=== PATIENT | male | born 1955 | race Caucasian/White ===

== ENCOUNTER 2021-01-17 15:35 | Inpatient (IN) | payer MEDICARE ==
[2021-01-17] MEDS ORDERED: Furosemide 40 MG/4 ML VIAL ONE (16:19)
[2021-01-17 16:24] LABS: #Basophils 0.1 10x3/uL (0.0-0.2); #Eosinphils 0.2 10x3/uL (0.0-0.5); #Monocytes 0.6 10x3/uL (0.0-1.1); #Neutrophils 5.3 10x3/uL (1.5-8.4); %Basophils 0.7 % (0.0-2.0); %Eosinophils 2.6 % (0.0-6.0); %Lymphocytes 11.8 % (18.0-47.0); %Monocytes 8.3 % (0.0-10.0); %Neutrophils 75.6 % (40.0-75.0); Hemoglobin 11.6 g/dL (13.5-17.5); Mean Corpuscular HGB CONC 32.7 g/dL (32.0-36.0); Mean Corpuscular Hemoglobin 31.4 pg (27.0-33.0); Mean Corpuscular Volume 96.2 fl (81.2-95.1); Mean Platelet Volume 10.1 fl (7.4-10.4); Platelet Count 151 10x3/uL (150-450); RBC Distribution Width 15.7 % (11.5-14.5); Red Blood Cell (RBC) Count 3.69 10x6/uL (4.32-5.72)
[2021-01-17 16:35] LABS: ALT (SGPT) 164 U/L (8-55); AST (SGOT) 99 U/L (5-34); Albumin 2.7 g/dL (3.4-4.8); Alkaline Phosphatase 80 U/L (40-110); Anion Gap 13 mmol/L (10-20); BUN (Urea Nitrogen) 10 mg/dL (8.4-25.7); Bilirubin, Total 2.5 mg/dL (0.2-1.2); Calc. Creatinine Clearance 0 mL/min (70-130); Calcium 8.5 mg/dL (7.8-10.44); Carbon Dioxide 24 mmol/L (23-31); Chloride 104 mmol/L (98-107); Globulin 4.7 g/dL (2.4-3.5); Glucose 145 mg/dL (80-115); Potassium 3.4 mmol/L (3.5-5.1); Protein, Total 7.4 g/dL (5.8-8.1); Sodium 138 mmol/L (136-145)
[2021-01-17] MEDS ORDERED: Loratadine 10 MG TAB PO PRN (18:05)
[2021-01-17] MEDS ORDERED: Loperamide HCl 2 MG CAP PO PRN (18:05)
[2021-01-17] MEDS ORDERED: Dextrose 5% in Water 1,000 ML IV PRN (18:05)
[2021-01-17] MEDS ORDERED: hydrALAZINE 20 MG/ML VIAL SLOW IVP PRN (18:05)
[2021-01-17] MEDS ORDERED: Acetaminophen 325 MG TAB PO PRN (18:05)
[2021-01-17] MEDS ORDERED: Bisacodyl 10 MG SUPP PR PRN (18:05)
[2021-01-17] MEDS ORDERED: Guaifenesin DM 100-10/5 ML UDCUP PO PRN (18:05)
[2021-01-17] MEDS ORDERED: Dextrose 50% Abboject 50 ML SYRINGE SLOW IVP PRN (18:05)
[2021-01-17] MEDS ORDERED: HumaLOG 300 UNITS/3 ML VIAL SC PRN ×2 (18:05)
[2021-01-17] MEDS ORDERED: Sodium Chloride 0.65% Nasal 44 ML BOT EA NARE PRN (18:05)
[2021-01-17] MEDS ORDERED: Cepastat Lozenges 1 LOZ PO PRN (18:05)
[2021-01-17] MEDS ORDERED: Eucerin (Mineral Oil/Petrolatum,White) 30 gm Jar TOP PRN (18:05)
[2021-01-17] MEDS ORDERED: Ondansetron ODT 4 MG TAB PO PRN (18:05)
[2021-01-17] MEDS ORDERED: Calcium Carbonate 500 MG ChewTAB PO PRN (18:05)
[2021-01-17] MEDS ORDERED: Ondansetron PF 4 MG/2 ML Vial IVP PRN (18:05)
[2021-01-17] MEDS ORDERED: Senokot S 8.6-50 MG TAB PO PRN (18:05)
[2021-01-17] MEDS ORDERED: Bisacodyl 5 MG TAB PO PRN (18:05)
[2021-01-17 18:41] LABS: INR-International Normal Ratio 1.3; PTT 26.3 sec (22.0-33.0); Prothrombin Time 13.9 sec (9.5-12.1)
[2021-01-17 18:46] LABS: Magnesium 1.6 mg/dL (1.6-2.6); Phosphorus 2.6 mg/dL (2.3-4.7)
[2021-01-17 19:07] LABS: Thyroid Stimulating Hormone 1.8466 uIU/mL (0.35-4.94)
[2021-01-17 19:39] VITALS: BMI 37.5
[2021-01-17] MEDS ORDERED: Potassium Chloride 20 MEQ TAB PO SCH (19:45)
[2021-01-17] MEDS: Magnesium Oxide 400 MG TAB PO SCH (20:25)
[2021-01-17 20:31] LABS: Troponin I Less than 0.010 ng/mL (< 0.028)
[2021-01-17 21:21] LABS: HBSAg Index 0.27 S/CO (0-0.99); Hep A IgM AB Non-Reactive (NonReactive); Hep A IgM S/CO 0.18 S/CO (0-0.79); Hep B Surf Ag Non-Reactive S/CO (NonReactive); Hepatitis B Core IgM Abs Non-Reactive (NonReactive)
[2021-01-17 22:18] LABS: Troponin I Less than 0.010 ng/mL (< 0.028)
[2021-01-18 01:48] LABS: Bilirubin Neg (Negative); Blood, Urine 10 (Negative); Clarity Clear (Clear); Glucose, Urine (Dipstick) Normal (Negative); Ketone, Urine Negative (Negative); Leukocyte Negative (Negative); Nitrite Negative (Negative); Protein, Urine (Dipstick) 15 mg/dl (Neg-Trace)
[2021-01-18 02:03] LABS: Creatinine, Urine 192.71 mg/dL (63-166)
[2021-01-18 02:04] LABS: Squamous Epithelial 0-3 HPF (0-3)
[2021-01-18 02:05] LABS: Bacteria/HPF Rare-Few HPF (None Seen)
[2021-01-18 02:15] LABS: SARS-CoV-2 PCR by NAA Not Detected (NotDetected)
[2021-01-18 05:53] LABS: #Eosinphils 0.2 10x3/uL (0.0-0.5); #Monocytes 0.6 10x3/uL (0.0-1.1); #Neutrophils 3.1 10x3/uL (1.5-8.4); %Basophils 0.8 % (0.0-2.0); %Eosinophils 3.3 % (0.0-6.0); %Lymphocytes 20.4 % (18.0-47.0); %Monocytes 11.3 % (0.0-10.0); %Neutrophils 63.4 % (40.0-75.0); Mean Corpuscular HGB CONC 32.9 g/dL (32.0-36.0); Mean Corpuscular Hemoglobin 32.3 pg (27.0-33.0); Mean Corpuscular Volume 98.1 fl (81.2-95.1); Mean Platelet Volume 10.5 fl (7.4-10.4); Platelet Count 116 10x3/uL (150-450); RBC Distribution Width 15.6 % (11.5-14.5); White Blood Cell (WBC) Count 4.9 10x3/uL (3.5-10.5)
[2021-01-18 06:06] LABS: ALT (SGPT) 133 U/L (8-55); AST (SGOT) 80 U/L (5-34); Albumin 2.4 g/dL (3.4-4.8); Alkaline Phosphatase 67 U/L (40-110); Anion Gap 11 mmol/L (10-20); BUN (Urea Nitrogen) 9 mg/dL (8.4-25.7); Bilirubin, Total 1.9 mg/dL (0.2-1.2); Calc. Creatinine Clearance 159 mL/min (70-130); Calcium 8.3 mg/dL (7.8-10.44); Carbon Dioxide 26 mmol/L (23-31); Chloride 105 mmol/L (98-107); Glucose 120 mg/dL (80-115); Potassium 3.3 mmol/L (3.5-5.1); Protein, Total 6.4 g/dL (5.8-8.1); Sodium 139 mmol/L (136-145)
[2021-01-18 06:13] LABS: Hep C Index 11.39 S/CO (0-0.79)
[2021-01-18 06:14] LABS: Hep C IgG Ab Reflex HepC Qnt (NonReactive)
[2021-01-18] MEDS: Furosemide 40 MG/4 ML VIAL SLOW IVP SCH ×2 (06:27→14:50)
[2021-01-18] MEDS ORDERED: Sodium Bicarbonate 2.5 MEQ/5 ML VIAL ONE (09:35)
[2021-01-18] MEDS ORDERED: Lidocaine 1% PF 5 ML VIAL ONE (09:35)
[2021-01-18] MEDS: Potassium Chloride 20 MEQ TAB PO SCH ×2 (11:07→17:27)
[2021-01-18] MEDS: Magnesium Oxide 400 MG TAB PO SCH ×2 (11:07→20:12)
[2021-01-18 12:42] LABS: BF Color Yellow; Body Fluid Source Ascites Body Fluid; Clarity Hazy (Clear); Tube # EDTA
[2021-01-18] MEDS: Propranolol 10 MG TAB PO SCH ×2 (14:50→20:12)
[2021-01-18] MEDS: cefTRIAXone\\ROCEPHIN 2 GM in Sodium Chloride 0.9% 100 ML IVPB SCH (20:08)
[2021-01-19] MEDS: Albumin 25% 25 GM/100 ML BOT IVPB SCH ×4 (02:50→18:01)
[2021-01-19 05:17] LABS: #Eosinphils 0.2 10x3/uL (0.0-0.5); #Monocytes 0.4 10x3/uL (0.0-1.1); #Neutrophils 2.1 10x3/uL (1.5-8.4); %Basophils 0.3 % (0.0-2.0); %Eosinophils 4.2 % (0.0-6.0); %Lymphocytes 25.2 % (18.0-47.0); %Monocytes 12.2 % (0.0-10.0); %Neutrophils 57.3 % (40.0-75.0); Mean Corpuscular HGB CONC 32.2 g/dL (32.0-36.0); Mean Corpuscular Hemoglobin 31.5 pg (27.0-33.0); Mean Corpuscular Volume 98.1 fl (81.2-95.1); Mean Platelet Volume 10.4 fl (7.4-10.4); Platelet Count 109 10x3/uL (150-450); RBC Distribution Width 15.5 % (11.5-14.5); Red Blood Cell (RBC) Count 3.17 10x6/uL (4.32-5.72); White Blood Cell (WBC) Count 3.6 10x3/uL (3.5-10.5)
[2021-01-19 05:24] LABS: Anion Gap 9 mmol/L (10-20); BUN (Urea Nitrogen) 10 mg/dL (8.4-25.7); Calc. Creatinine Clearance 169 mL/min (70-130); Calcium 7.9 mg/dL (7.8-10.44); Carbon Dioxide 28 mmol/L (23-31); Chloride 106 mmol/L (98-107); Glucose 125 mg/dL (80-115); INR-International Normal Ratio 1.3; Potassium 3.1 mmol/L (3.5-5.1); Prothrombin Time 14.5 sec (9.5-12.1); Sodium 140 mmol/L (136-145)
[2021-01-19 05:36] LABS: ALT (SGPT) 114 U/L (8-55); AST (SGOT) 70 U/L (5-34); Albumin 2.1 g/dL (3.4-4.8); Alkaline Phosphatase 60 U/L (40-110); Bilirubin, Direct 0.8 mg/dL (0.1-0.3); Bilirubin, Total 1.4 mg/dL (0.2-1.2); Protein, Total 5.9 g/dL (5.8-8.1)
[2021-01-19] MEDS: Furosemide 40 MG/4 ML VIAL SLOW IVP SCH ×2 (06:35→13:05)
[2021-01-19] MEDS: Propranolol 10 MG TAB PO SCH ×3 (07:59→21:19)
[2021-01-19] MEDS: Spironolactone 25 MG TAB PO SCH (07:59)
[2021-01-19] MEDS: Magnesium Oxide 400 MG TAB PO SCH ×2 (07:59→21:19)
[2021-01-19] MEDS: Potassium Chloride 20 MEQ TAB PO SCH ×2 (07:59→16:32)
[2021-01-19] MEDS ORDERED: Potassium Chloride 20 MEQ TAB PO SCH (09:00)
[2021-01-19] MEDS: cefTRIAXone\\ROCEPHIN 2 GM in Sodium Chloride 0.9% 100 ML IVPB SCH (21:19)
[2021-01-20] MEDS: Albumin 25% 25 GM/100 ML BOT IVPB SCH ×3 (00:30→17:41)
[2021-01-20] MEDS: Furosemide 40 MG/4 ML VIAL SLOW IVP SCH ×2 (06:05→14:07)
[2021-01-20] MEDS: Propranolol 10 MG TAB PO SCH ×3 (08:44→20:42)
[2021-01-20] MEDS: Spironolactone 25 MG TAB PO SCH (08:44)
[2021-01-20] MEDS: Potassium Chloride 20 MEQ TAB PO SCH ×2 (08:44→16:06)
[2021-01-20] MEDS: Magnesium Oxide 400 MG TAB PO SCH ×2 (08:44→20:42)
[2021-01-20 12:13] LABS: HCV log10 4.021 (.); Hep C PCR-Quant 10500 IU/mL (.)
[2021-01-20] MEDS ORDERED: Albumin 25% 200 ML ONE (16:20)
[2021-01-20] MEDS: cefTRIAXone\\ROCEPHIN 2 GM in Sodium Chloride 0.9% 100 ML IVPB SCH (20:41)
[2021-01-21] MEDS: Furosemide 40 MG/4 ML VIAL SLOW IVP SCH ×2 (05:50→13:02)
[2021-01-21] MEDS: Albumin 25% 25 GM/100 ML BOT IVPB SCH ×3 (05:50→18:11)
[2021-01-21 06:13] LABS: #Eosinphils 0.2 10x3/uL (0.0-0.5); #Monocytes 0.4 10x3/uL (0.0-1.1); #Neutrophils 2.3 10x3/uL (1.5-8.4); %Basophils 0.8 % (0.0-2.0); %Eosinophils 4.8 % (0.0-6.0); %Lymphocytes 24.5 % (18.0-47.0); %Monocytes 11.2 % (0.0-10.0); %Neutrophils 58.2 % (40.0-75.0); Hemoglobin 10.5 g/dL (13.5-17.5); Mean Corpuscular HGB CONC 32.4 g/dL (32.0-36.0); Mean Corpuscular Hemoglobin 31.8 pg (27.0-33.0); Mean Corpuscular Volume 98.2 fl (81.2-95.1); Mean Platelet Volume 10.2 fl (7.4-10.4); Platelet Count 105 10x3/uL (150-450); RBC Distribution Width 15.4 % (11.5-14.5); White Blood Cell (WBC) Count 3.9 10x3/uL (3.5-10.5)
[2021-01-21 06:26] LABS: ALT (SGPT) 104 U/L (8-55); AST (SGOT) 74 U/L (5-34); Albumin 3.1 g/dL (3.4-4.8); Alkaline Phosphatase 49 U/L (40-110); Anion Gap 14 mmol/L (10-20); BUN (Urea Nitrogen) 10 mg/dL (8.4-25.7); Bilirubin, Total 1.9 mg/dL (0.2-1.2); Calc. Creatinine Clearance 159 mL/min (70-130); Calcium 8.5 mg/dL (7.8-10.44); Carbon Dioxide 27 mmol/L (23-31); Chloride 104 mmol/L (98-107); Globulin 3.5 g/dL (2.4-3.5); Glucose 101 mg/dL (80-115); Magnesium 1.6 mg/dL (1.6-2.6); Potassium 3.7 mmol/L (3.5-5.1); Protein, Total 6.6 g/dL (5.8-8.1); Sodium 141 mmol/L (136-145)
[2021-01-21] MEDS: Magnesium Oxide 400 MG TAB PO SCH ×2 (07:56→21:33)
[2021-01-21] MEDS: Propranolol 10 MG TAB PO SCH ×3 (07:56→21:33)
[2021-01-21] MEDS: Potassium Chloride 20 MEQ TAB PO SCH ×2 (07:56→16:16)
[2021-01-21] MEDS: Spironolactone 25 MG TAB PO SCH (07:56)
[2021-01-21] MEDS ORDERED: Sodium Bicarbonate 2.5 MEQ/5 ML VIAL ONE (11:45)
[2021-01-21 13:51] LABS: Body Fluid Source Paracentesis Fluid; Tube # EDTA
[2021-01-21 13:52] LABS: BF Color Yellow; Clarity Hazy (Clear)
[2021-01-21] MEDS ORDERED: Albumin 25% 25 GM/100 ML BOT IVPB SCH (18:15)
[2021-01-21] MEDS: cefTRIAXone\\ROCEPHIN 2 GM in Sodium Chloride 0.9% 100 ML IVPB SCH (21:33)
[2021-01-22] MEDS: Furosemide 40 MG/4 ML VIAL SLOW IVP SCH ×2 (06:06→16:21)
[2021-01-22] MEDS: Phenazopyridine HCl 97.5 MG TABLET PO SCH ×2 (08:44→16:21)
[2021-01-22] MEDS: Propranolol 10 MG TAB PO SCH ×3 (08:44→22:24)
[2021-01-22] MEDS: Potassium Chloride 20 MEQ TAB PO SCH ×2 (08:44→16:21)
[2021-01-22] MEDS: Spironolactone 25 MG TAB PO SCH (08:44)
[2021-01-22] MEDS: Magnesium Oxide 400 MG TAB PO SCH ×2 (08:44→22:24)
[2021-01-22 15:14] LABS: Smooth Muscle Total ABS 18 Units (0-19)
[2021-01-22] MEDS: cefTRIAXone\\ROCEPHIN 2 GM in Sodium Chloride 0.9% 100 ML IVPB SCH (22:26)
[2021-01-23] MEDS: Phenazopyridine HCl 97.5 MG TABLET PO SCH (01:03)
[2021-01-23] MEDS: Furosemide 40 MG/4 ML VIAL SLOW IVP SCH (05:32)
[2021-01-23] MEDS: Potassium Chloride 20 MEQ TAB PO SCH ×2 (08:47→15:44)
[2021-01-23] MEDS: Propranolol 10 MG TAB PO SCH ×3 (08:48→20:47)
[2021-01-23] MEDS: Apixaban 5 MG TAB PO SCH ×2 (08:48→20:46)
[2021-01-23] MEDS: Magnesium Oxide 400 MG TAB PO SCH ×2 (08:48→20:47)
[2021-01-23] MEDS: Spironolactone 25 MG TAB PO SCH (08:48)
[2021-01-23] MEDS ORDERED: Furosemide 40 MG TAB PO SCH (14:00)
[2021-01-24 05:49] LABS: #Basophils 0.1 10x3/uL (0.0-0.2); #Eosinphils 0.3 10x3/uL (0.0-0.5); #Monocytes 0.5 10x3/uL (0.0-1.1); %Eosinophils 5.3 % (0.0-6.0); %Monocytes 10.1 % (0.0-10.0); %Neutrophils 59.8 % (40.0-75.0); Hemoglobin 10.7 g/dL (13.5-17.5); Mean Corpuscular HGB CONC 32.6 g/dL (32.0-36.0); Mean Corpuscular Hemoglobin 31.2 pg (27.0-33.0); Mean Corpuscular Volume 95.6 fl (81.2-95.1); Mean Platelet Volume 11.1 fl (7.4-10.4); Platelet Count 110 10x3/uL (150-450); RBC Distribution Width 15.9 % (11.5-14.5); Red Blood Cell (RBC) Count 3.43 10x6/uL (4.32-5.72); White Blood Cell (WBC) Count 5.1 10x3/uL (3.5-10.5)
[2021-01-24 06:04] LABS: Anion Gap 15 mmol/L (10-20); BUN (Urea Nitrogen) 16 mg/dL (8.4-25.7); Calc. Creatinine Clearance 144 mL/min (70-130); Calcium 8.6 mg/dL (7.8-10.44); Carbon Dioxide 26 mmol/L (23-31); Chloride 103 mmol/L (98-107); Glucose 104 mg/dL (80-115); Potassium 3.9 mmol/L (3.5-5.1); Sodium 140 mmol/L (136-145)
[2021-01-24 08:08] VITALS: BP 107/63; TEMP 98.4
[2021-01-25 15:36] LABS: ANA Symphony (Qualitative) Negative (Negative); ANA Symphony (Quantitative) 0.5 Ratio (< 0.7 Negative); Mitochondrial Ab 2.1 U/mL (<4 Negative)
[2021-01-25 15:37] LABS: EliA Vaculitis New Method **** NEW METHOD ****
== END 2021-01-24 08:46 | disposition home or self-care (01) | DRG 435 ==
LOC: CSHERS 15:35 → CSHTELE 19:34
PROVIDERS: ADMIT Internal Medicine; ATTEND Family Medicine
PROC: 0W9G3ZZ Drainage of Peritoneal Cavity, Percutaneous Approach (ICD-10-PCS; principal; 2021-01-18)
PROC: 0W9G3ZX Drainage of Peritoneal Cavity, Percutaneous Approach, Diagnostic (ICD-10-PCS; 2021-01-21)
DX: C22.0 Liver cell carcinoma (principal); K65.2 Spontaneous bacterial peritonitis; I81 Portal vein thrombosis; I82.0 Budd-Chiari syndrome; R18.8 Other ascites; K76.6 Portal hypertension; I85.10 Secondary esophageal varices without bleeding; K74.60 Unspecified cirrhosis of liver; Z20.822 Contact with and (suspected) exposure to COVID-19; E87.6 Hypokalemia; B18.2 Chronic viral hepatitis C; M10.9 Gout, unspecified; M54.5 Low back pain; G89.29 Other chronic pain; E11.8 Type 2 diabetes mellitus with unspecified complications; D64.9 Anemia, unspecified; R77.2 Abnormality of alphafetoprotein
CPT/HCPCS: 36415; 36416; 49083; 71045; 74177; 74183; 80048; 80053; 80074; 80076; 81001; 82042; 82105; 82140; 82390; 82570; 82728; 82945; 83036; 83516; 83615; 83735; 83880; 84100; 84156; 84157; 84443; 84484; 85025; 85610; 85730; 86038; 86225; 87070; 87205; 87522; 87635; 87902; 88112; 88305; 89051; 93005; 94760; 96374; J0696; J1940; J3490; P9047; U0003; U0005

== ENCOUNTER 2021-02-05 04:55 | Inpatient (IN) | payer MEDICARE ==
[2021-02-05 05:46] LABS: #Basophils 0.1 10x3/uL (0.0-0.2); #Eosinphils 0.2 10x3/uL (0.0-0.5); #Monocytes 0.8 10x3/uL (0.0-1.1); #Neutrophils 4.3 10x3/uL (1.5-8.4); %Basophils 0.8 % (0.0-2.0); %Eosinophils 3.1 % (0.0-6.0); %Lymphocytes 16.7 % (18.0-47.0); %Monocytes 12.5 % (0.0-10.0); %Neutrophils 66.3 % (40.0-75.0); Hemoglobin 12.2 g/dL (13.5-17.5); Mean Corpuscular HGB CONC 33.4 g/dL (32.0-36.0); Mean Corpuscular Hemoglobin 31.9 pg (27.0-33.0); Mean Corpuscular Volume 95.3 fl (81.2-95.1); Mean Platelet Volume 10.9 fl (7.4-10.4); Platelet Count 129 10x3/uL (150-450); RBC Distribution Width 15.3 % (11.5-14.5); Red Blood Cell (RBC) Count 3.83 10x6/uL (4.32-5.72); White Blood Cell (WBC) Count 6.5 10x3/uL (3.5-10.5)
[2021-02-05 05:51] LABS: ALT (SGPT) 175 U/L (8-55); AST (SGOT) 116 U/L (5-34); Albumin 3.2 g/dL (3.4-4.8); Alkaline Phosphatase 83 U/L (40-110); Anion Gap 17 mmol/L (10-20); BUN (Urea Nitrogen) 15 mg/dL (8.4-25.7); Bilirubin, Total 2.7 mg/dL (0.2-1.2); Calc. Creatinine Clearance 0 mL/min (70-130); Calcium 8.9 mg/dL (7.8-10.44); Carbon Dioxide 21 mmol/L (23-31); Chloride 104 mmol/L (98-107); Globulin 4.6 g/dL (2.4-3.5); Glucose 135 mg/dL (80-115); Protein, Total 7.8 g/dL (5.8-8.1); Sodium 138 mmol/L (136-145)
[2021-02-05 05:57] LABS: Bilirubin 1+ (Negative); Blood, Urine 10 (Negative); Clarity Clear (Clear); Glucose, Urine (Dipstick) Normal (Negative); Ketone, Urine Negative (Negative); Leukocyte 25 (Negative); Nitrite Negative (Negative); Protein, Urine (Dipstick) Negative (Neg-Trace)
[2021-02-05 06:10] LABS: Bacteria/HPF 1+ HPF (None Seen); Squamous Epithelial 0-3 HPF (0-3)
[2021-02-05 06:11] LABS: Mucous/LPF 2+ LPF (<2+)
[2021-02-05] MEDS ORDERED: Senokot S 8.6-50 MG TAB PO PRN (06:23)
[2021-02-05] MEDS ORDERED: Calcium Carbonate 500 MG ChewTAB PO PRN (06:23)
[2021-02-05] MEDS ORDERED: Guaifenesin DM 100-10/5 ML UDCUP PO PRN (06:23)
[2021-02-05] MEDS ORDERED: Dextrose 50% Abboject 50 ML SYRINGE SLOW IVP PRN (06:23)
[2021-02-05] MEDS ORDERED: Dextrose 5% in Water 1,000 ML IV PRN (06:23)
[2021-02-05] MEDS ORDERED: HumaLOG 300 UNITS/3 ML VIAL SC PRN (06:23)
[2021-02-05 06:44] LABS: SARS-CoV-2 NAA Rapid Test Not Detected (NotDetected)
[2021-02-05] MEDS ORDERED: Furosemide 40 MG/4 ML VIAL ONE (06:53)
[2021-02-05 08:39] VITALS: BMI 32.5
[2021-02-05] MEDS ORDERED: Spironolactone 25 MG TAB PO SCH (08:45)
[2021-02-05] MEDS: Folic Acid 1 MG TAB PO SCH (11:10)
[2021-02-05] MEDS: Multivitamin W/ Minerals 1 TAB PO SCH (11:10)
[2021-02-05] MEDS: Thiamine 100 MG TAB PO SCH (11:10)
[2021-02-05] MEDS: Furosemide 40 MG/4 ML VIAL SLOW IVP SCH (16:28)
[2021-02-05] MEDS ORDERED: HYDROcodone/Acetaminophen 5/325 mg Tablet PO SCH (23:15)
[2021-02-06 04:06] LABS: ALT (SGPT) 159 U/L (8-55); AST (SGOT) 107 U/L (5-34); Albumin 3.1 g/dL (3.4-4.8); Alkaline Phosphatase 83 U/L (40-110); Anion Gap 16 mmol/L (10-20); BUN (Urea Nitrogen) 20 mg/dL (8.4-25.7); Bilirubin, Total 2.2 mg/dL (0.2-1.2); Calc. Creatinine Clearance 110 mL/min (70-130); Calcium 9.1 mg/dL (7.8-10.44); Carbon Dioxide 21 mmol/L (23-31); Chloride 101 mmol/L (98-107); Globulin 4.7 g/dL (2.4-3.5); Glucose 145 mg/dL (80-115); Potassium 3.7 mmol/L (3.5-5.1); Protein, Total 7.8 g/dL (5.8-8.1); Sodium 134 mmol/L (136-145)
[2021-02-06 04:15] LABS: #Basophils 0.1 10x3/uL (0.0-0.2); #Eosinphils 0.2 10x3/uL (0.0-0.5); #Monocytes 0.6 10x3/uL (0.0-1.1); #Neutrophils 3.2 10x3/uL (1.5-8.4); %Eosinophils 3.7 % (0.0-6.0); %Lymphocytes 15.9 % (18.0-47.0); %Neutrophils 65.8 % (40.0-75.0); Hemoglobin 11.5 g/dL (13.5-17.5); Mean Corpuscular HGB CONC 33.5 g/dL (32.0-36.0); Mean Corpuscular Volume 95.5 fl (81.2-95.1); Mean Platelet Volume 10.8 fl (7.4-10.4); Platelet Count 106 10x3/uL (150-450); RBC Distribution Width 15.3 % (11.5-14.5); Red Blood Cell (RBC) Count 3.59 10x6/uL (4.32-5.72); White Blood Cell (WBC) Count 4.8 10x3/uL (3.5-10.5)
[2021-02-06] MEDS: Furosemide 40 MG/4 ML VIAL SLOW IVP SCH ×2 (06:28→14:14)
[2021-02-06] MEDS: Folic Acid 1 MG TAB PO SCH (08:19)
[2021-02-06] MEDS: Thiamine 100 MG TAB PO SCH (08:19)
[2021-02-06] MEDS: Multivitamin W/ Minerals 1 TAB PO SCH (08:19)
[2021-02-06] MEDS: Spironolactone 25 MG TAB PO SCH (08:19)
[2021-02-06] MEDS: Ondansetron PF 4 MG/2 ML Vial IVP PRN (08:29)
[2021-02-06] MEDS: HYDROcodone/Acetaminophen 5/325 mg Tablet PO PRN (17:45)
[2021-02-07] MEDS: HYDROcodone/Acetaminophen 5/325 mg Tablet PO PRN ×2 (01:30→09:22)
[2021-02-07] MEDS: Ondansetron PF 4 MG/2 ML Vial IVP PRN (01:30)
[2021-02-07] MEDS: Furosemide 40 MG/4 ML VIAL SLOW IVP SCH ×2 (06:47→13:36)
[2021-02-07] MEDS: Spironolactone 25 MG TAB PO SCH (09:22)
[2021-02-07] MEDS: Thiamine 100 MG TAB PO SCH (09:22)
[2021-02-07] MEDS: Folic Acid 1 MG TAB PO SCH (09:22)
[2021-02-07] MEDS: Multivitamin W/ Minerals 1 TAB PO SCH (09:22)
[2021-02-07 12:43] VITALS: BP 104/69; TEMP 97.9
== END 2021-02-07 16:13 | disposition home or self-care (01) | DRG 432 ==
LOC: SUATTDRO 04:55 → CSHERS 04:55 → CSHTELE 07:55
PROVIDERS: ADMIT Internal Medicine; ATTEND Internal Medicine
DX: K74.60 Unspecified cirrhosis of liver (principal); J96.01 Acute respiratory failure with hypoxia; I81 Portal vein thrombosis; C22.0 Liver cell carcinoma; K76.6 Portal hypertension; R18.8 Other ascites; J90 Pleural effusion, not elsewhere classified; Z20.822 Contact with and (suspected) exposure to COVID-19; B18.2 Chronic viral hepatitis C; E11.22 Type 2 diabetes mellitus with diabetic chronic kidney disease; I12.9 Hypertensive chronic kidney disease with stage 1 through stage 4 chronic kidney disease, or unspecified chronic kidney disease; N18.2 Chronic kidney disease, stage 2 (mild); M10.9 Gout, unspecified; D64.9 Anemia, unspecified; D69.6 Thrombocytopenia, unspecified; M54.5 Low back pain; E53.8 Deficiency of other specified B group vitamins; Z87.891 Personal history of nicotine dependence; Z79.01 Long term (current) use of anticoagulants; Z79.899 Other long term (current) drug therapy; E87.79 Other fluid overload
CPT/HCPCS: 36416; 71045; 80053; 81003; 81015; 83880; 84484; 85025; 93005; 94760; 96374; J1940; J1956; J2405; U0002

== ENCOUNTER 2021-05-14 02:29 | Emergency (ER) | payer MEDICARE ==
[2021-05-14 03:38] LABS: #Basophils 0.1 10x3/uL (0.0-0.2); #Eosinphils 0.2 10x3/uL (0.0-0.5); #Monocytes 0.4 10x3/uL (0.0-1.1); #Neutrophils 2.2 10x3/uL (1.5-8.4); %Basophils 1.4 % (0.0-2.0); %Eosinophils 6.5 % (0.0-6.0); %Lymphocytes 20.9 % (18.0-47.0); %Monocytes 10.3 % (0.0-10.0); %Neutrophils 59.5 % (40.0-75.0); Hemoglobin 12.4 g/dL (13.5-17.5); Mean Corpuscular HGB CONC 32.5 g/dL (32.0-36.0); Mean Corpuscular Hemoglobin 31.8 pg (27.0-33.0); Mean Corpuscular Volume 97.9 fl (81.2-95.1); Mean Platelet Volume 10.1 fl (7.4-10.4); Platelet Count 130 10x3/uL (150-450); RBC Distribution Width 15.3 % (11.5-14.5); White Blood Cell (WBC) Count 3.7 10x3/uL (3.5-10.5)
[2021-05-14 03:53] LABS: ALT (SGPT) 355 U/L (8-55); AST (SGOT) 215 U/L (5-34); Albumin 2.7 g/dL (3.4-4.8); Alkaline Phosphatase 87 U/L (40-110); Anion Gap 12 mmol/L (10-20); BUN (Urea Nitrogen) 16 mg/dL (8.4-25.7); Bilirubin, Total 1.7 mg/dL (0.2-1.2); Calc. Creatinine Clearance 0 mL/min (70-130); Calcium 9.2 mg/dL (7.8-10.44); Carbon Dioxide 23 mmol/L (23-31); Chloride 108 mmol/L (98-107); Globulin 5.6 g/dL (2.4-3.5); Glucose 121 mg/dL (80-115); Protein, Total 8.3 g/dL (5.8-8.1); Sodium 139 mmol/L (136-145)
[2021-05-14 06:25] LABS: Body Fluid Source Ascites Body Fluid; Clarity Cloudy/Turbid (Clear)
[2021-05-14 06:26] LABS: BF Color Yellow; Tube # EDTA
== END 2021-05-14 06:40 | disposition home or self-care (01) ==
LOC: CSHERS 02:29
DX: J90 Pleural effusion, not elsewhere classified (principal); R18.8 Other ascites; E11.9 Type 2 diabetes mellitus without complications; M10.9 Gout, unspecified; I81 Portal vein thrombosis; C22.9 Malignant neoplasm of liver, not specified as primary or secondary; Z87.19 Personal history of other diseases of the digestive system; Z79.899 Other long term (current) drug therapy; Z79.01 Long term (current) use of anticoagulants
CPT/HCPCS: 71045; 80053; 84484; 85025; 87070; 87205; 89051; 93005